=== PATIENT | female | born 1970 | race African-American/Black ===

== ENCOUNTER 2021-03-13 14:58 | Outpatient (CLI) | payer BC | END 2021-03-13 14:59 | disposition home or self-care (01) | LOC: CSHRAD 14:58 | PROVIDERS: ATTEND Family Medicine | DX: M25.562 Pain in left knee (principal); M25.462 Effusion, left knee; M79.89 Other specified soft tissue disorders ==

== ENCOUNTER 2022-06-23 14:03 | Outpatient (CLI) | payer BC | END 2022-06-23 14:04 | disposition home or self-care (01) | LOC: CSHMAMMO 14:03 | PROVIDERS: ATTEND Family Medicine | DX: Z12.31 Encounter for screening mammogram for malignant neoplasm of breast (principal); Z80.3 Family history of malignant neoplasm of breast | CPT/HCPCS: 77063; 77067 ==